=== PATIENT | male | born 1965 | race Caucasian/White ===

== ENCOUNTER 2017-11-22 14:27 | Emergency (ER) | payer OTHER ==
[~2017-11-22] VITALS: Ht 175.3 cm; Wt 115.0 kg
[2017-11-22 14:30] VITALS: Ht 175.3 cm; Wt 115.0 kg
[2017-11-22] MEDS ORDERED: KETOROLAC 30 MG INJ IM STA (15:26)
--- NOTE | 2017-11-22 17:18 | RADRPT ---
PROCEDURE: XR Lumbar Spine. CLINICAL INDICATION: Low back pain. TECHNIQUE: Four views of the lumbar spine are available for review including AP, lateral and both obliques. COMPARISON: None available FINDINGS: There is a shallow levoscoliosis. Deformity of the posterior aspect of the L5 vertebral body could b e post-traumatic change - age indeterminate. Consider MRI for further evaluation if clinically indic ated. There is moderate spondylosis change at L4-5. No evidence for vertebral body compression fract ure from T12-L4. IMPRESSION: 1. Deformity of the posterior aspect of the L5 vertebral body could be post-traumatic - age indeter minate. Consider MRI for further evaluation if clinically indicated. 2. No evidence for vertebral body compression fracture from T12-L4. RPTAT: XX .Noah Tai MD, Date Time Electronically viewed and signed by .Noah Tai MD, on 11/22/2017 17:17 .T/
[2017-11-22] MEDS ORDERED: HYDR-902 PO (17:21)
[2017-11-22] MEDS ORDERED: IBUP-1542 PO (17:21)
[2017-11-22 17:27] VITALS: BP 126/75; PULSE 81; RESP 18; TEMP 97.9
--- NOTE | 2017-11-22 21:03 | ERD ---
ER Documentation Chief Complaint Chief Complaint BACK PAIN HX OF BACK ISSUES HPI Patient is a 52-year-old male with a past medical history of chronic back pain who presents to the ED for concerns of acute exacerbation of back pain. Patient states his pain started 5 days ago. Patient states the pain is in his right lower back and radiating down his right leg. Patient does ambulate with a cane secondary to chronic back pain. Patient denies any falls or trauma. Patient reports taking tramadol as well as using lidocaine gel with no alleviation of symptoms. Patient denies any saddle anesthesia, urinary incontinence, stool incontinence, fevers, chills, chest pain, shortness of breath, nausea, vomiting or LOC. Patient denies any dysuria, frequency, urgency or hematuria. 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 States that prolonged periods of sitting to worsen his pain. Patient's last imaging study was taken over 5 years ago. Patient requested at this time ROS All systems reviewed and are negative except as per history of present illness. Medications Home Meds Active Scripts Ibuprofen* (Motrin*) 600 Mg Tab, 600 MG PO Q6, #20 TAB Prov:RASHIDA MONTALVO PA-C 11/22/17 Hydrocodone/Acetaminophen ([place] 10-325 Tablet) 1 Each Tablet, 1 TAB PO Q6H Y for PAIN, #7 TAB Prov:RASHIDA MONTALVO PA-C 11/22/17 Allergies Allergies: Coded Allergies: No Known Allergy (Unverified , 11/22/17) PMhx/Soc History of Surgery: No Anesthesia Reaction: No Hx Neurological Disorder: No Hx Respiratory Disorders: No Hx Cardiac Disorders: No Hx Psychiatric Problems: No Hx Miscellaneous Medical Probl: Yes (SCIATICA ) Hx Alcohol Use: No Hx Substance Use: No Hx Tobacco Use: No Physical Exam Vitals Vital Signs Date Time Temp Pulse Resp B/P Pulse Ox O2 Delivery O2 Flow Rate FiO2 11/22/17 17:27 97.9 81 18 126/75 100 Room Air 11/22/17 14:30 98.0 86 18 113/79 100 Physical Exam GENERAL: Obese male. Appears in no acute distress. Speaking in full sentences. HEAD: Normocephalic, atraumatic. EYES: Pupils are equally reactive bilaterally. EOMs grossly intact. No conjunctival erythema. ENT: Moist mucous membranes. No uvula deviation. No kissing tonsils. NECK: Supple. No meningismus. Normal range of motion of the neck. LUNG: Clear to auscultation bilaterally. No rhonchi, wheezing, rales or coarse breath sounds. HEART: Regular rate and rhythm. No murmurs, rubs or gallops. BACK: Wearing back brace. Back brace was removed. knows midline tenderness. Tender to palpation of the right lumbar paraspinal muscles. No CVA tenderness bilaterally. EXTREMITIES: Equal pulses bilaterally. No peripheral clubbing, cyanosis or edema. No unilateral leg swelling. NEUROLOGIC: Alert and oriented. Moving all four extremities without any difficulty. Normal speech. Steady gait with walking cane. SKIN: Normal color. Warm and dry. No rashes or lesions. Results 24 hrs Current Medications Medications (Trade) Dose Ordered Sig/Farrah Route PRN Reason Start Time Stop Time Status Last Admin Dose Admin Ketorolac Tromethamine (Toradol) 30 mg ONCE STAT IM 11/22/17 15:26 11/22/17 15:27 DC 11/22/17 15:32 Procedures/MDM ED COURSE: The patient was stable throughout ED course. I kept the patient and/or family informed of laboratory and diagnostic imaging results throughout the ED course. DIAGNOSTIC IMAGING: Read by radiologist. Patient: NICO JOHNSTON : 1965 Age: 52 Sex: M MR #: [id number] DOS: 11/22/17 1526 Ordering MD: RASHIDA MONTALVO PA-C Location: [facility] Room/Bed: PROCEDURE: XR Lumbar Spine. CLINICAL INDICATION: Low back pain. TECHNIQUE: Four views of the lumbar spine are available for review including AP, lateral and both obliques. COMPARISON: None available FINDINGS: There is a shallow levoscoliosis. Deformity of the posterior aspect of the L5 vertebral body could be post-traumatic change - age indeterminate. Consider MRI for further evaluation if clinically indicated. There is moderate spondylosis change at L4-5. No evidence for vertebral body compression fracture from T12-L4. IMPRESSION: 1. Deformity of the posterior aspect of the L5 vertebral body could be post- traumatic - age indeterminate. Consider MRI for further evaluation if clinically indicated. 2. No evidence for vertebral body compression fracture from T12-L4. RPTAT: XX .Noah Tai MD, MD Date Time Electronically viewed and signed by .Noah Tai MD, MD on 11/22/2017 17: 17 .T/ PROCEDURES: None. MEDICATIONS GIVEN: Toradol IM Patient tolerated medication well with no adverse reactions. MEDICAL DECISION MAKING: This is a 52-year-old history of chronic back pain who presents ED for acute exacerbation of lower back pain. Patient states his pain is primarily in the right side and is radiating down his right leg. Vital signs were reviewed. Patient was afebrile. Patient denied any saddle anesthesia, urinary incontinence, bowel incontinence, night pain or recent falls /trauma. Patient requests repeat x-ray imaging at this time. X-ray imaging of the lumbar spine showed Deformity of the posterior aspect of the L5 vertebral body could be post-traumatic - age indeterminate. Consider MRI for further evaluation if clinically indicated. No evidence for vertebral body compression fracture from T12-L4. Patient was given Toradol here in the ED. Patient did have some improvement in pain. Patient will be given a prescription for [place] at home. At this time, patient's presentation is most consistent with acute exacerbation of chronic back pain. Low suspicion for cauda equina, spinal fractures, epidural abscess, spinal metastasis, osteomyelitis, aortic dissection , ruptured or leaking AA, DJD, muscle spasm, pyelonephritis or nephrolithiasis. PRESCRIPTIONS: Ibuprofen [place] DISCHARGE: At this time, patient is stable for discharge and outpatient management. Patient was given a copy of all imaging studies obtained today. Patient advised to follow-up with the applied behavior science specialist and/or structural steel painter as needed for further management of his chronic pain.RICE therapy and ROM exercises were advised to avoid stiffness. I have instructed the patient to follow-up with his/her primary care physician in 1-2 days. I have discussed with the patient the possibility of needing to see an applied behavior science specialist for further workup and imaging if the pain persists. I have instructed the patient to promptly return to the ER for any new or worsening symptoms including increased pain, swelling, warmth, urinary incontinence, stool incontinence, weakness or numbness. The patient and/or family expressed understanding of and agreement with this plan. All questions were answered. Home care instructions were provided . Disclaimer: Inadvertent spelling and grammatical errors are likely due to EHR /dictation software use and do not reflect on the overall quality of patient care. Also, please note that the electronic time recorded on this note does not necessarily reflect the actual time of the patient encounter. Departure Diagnosis: Primary Impression: Back pain Back pain location: low back pain Chronicity: chronic Back pain laterality : right Sciatica presence: with sciatica Sciatica laterality: sciatica of right side Qualified Code: M54.41 - Chronic right-sided low back pain with right-sided sciatica Condition: Stable Patient Instructions: Back Pain (Acute Or Chronic), Back Pain W/ Sciatica Referrals: REPLACED BY [facility] YOU HAVE RECEIVED A MEDICAL SCREENING EXAM AND THE RESULTS INDICATE THAT YOU DO NOT HAVE A CONDITION THAT REQUIRES URGENT TREATMENT IN THE EMERGENCY DEPARTMENT. FURTHER EVALUATION AND TREATMENT OF YOUR CONDITION CAN WAIT UNTIL YOU ARE SEEN IN YOUR DOCTORS OFFICE WITHIN THE NEXT 1-2 DAYS. IT IS YOUR RESPONSIBILITY TO MAKE AN APPOINTMENT FOR FOLOW-UP CARE. IF YOU HAVE A PRIMARY DOCTOR --you should call your primary doctor and schedule an appointment IF YOU DO NOT HAVE A PRIMARY DOCTOR YOU CAN CALL OUR PHYSICIAN REFERRAL HOTLINE AT IF YOU CAN NOT AFFORD TO SEE A PHYSICIAN YOU CAN CHOSE FROM THE FOLLOWING [facility] [address] [facility]. [facility] [address] [facility] [facility] [address] [facility] [facility] [address] [facility]. [facility] [address] [facility]. [facility]. [address] [facility] YOU HAVE RECEIVED A MEDICAL SCREENING EXAM AND THE RESULTS INDICATE THAT YOU DO NOT HAVE A CONDITION THAT REQUIRES URGENT TREATMENT IN THE EMERGENCY DEPARTMENT. FURTHER EVALUATION AND TREATMENT OF YOUR CONDITION CAN WAIT UNTIL YOU ARE SEEN IN YOUR DOCTORS OFFICE WITHIN THE NEXT 1-2 DAYS. IT IS YOUR RESPONSIBILITY TO MAKE AN APPOINTMENT FOR FOLOW-UP CARE. IF YOU HAVE A PRIMARY DOCTOR --you should call your primary doctor and schedule and appointment IF YOU DO NOT HAVE A PRIMARY DOCTOR YOU CAN CALL OUR PHYSICIAN REFERRAL HOTLINE AT . IF YOU CAN NOT AFFORD TO SEE A PHYSICIAN YOU CAN CHOSE FROM THE FOLLOWING [facility], [facility] INSTITUTIONS: [facility] [address] [place] [address] [facility] [address] [place] [address] [facility] + [facility] [address] [place] [address] Additional Instructions: Follow-up with an applied behavior science specialist on an outpatient basis. You may need an MRI and an outpatient basis. Call your primary care doctor TOMORROW for an appointment during the next 1-2 days.See the doctor sooner or return here if your condition worsens before your appointment time. RASHIDA MONTALVO PA-C Nov 22, 2017 20:57
== END 2017-11-22 17:28 | disposition home or self-care (01) ==
LOC: FTE 14:27
DX: M54.41 Lumbago with sciatica, right side (principal)
CPT/HCPCS: 72100; 96372; J1885; Z7502